=== PATIENT | female | born 1950 | race Caucasian/White ===

== ENCOUNTER 2023-09-08 16:38 | Emergency (ER) | payer OTHER, SELFPAY ==
[2023-09-08 16:42] VITALS: BP 119/66
[2023-09-08 16:45] VITALS: BP 119/66
[2023-09-08 16:56] VITALS: BMI 29.2
[2023-09-08 17:00] VITALS: BP 117/66
[2023-09-08 17:00] LABS: % Eosinophils 4.8 % (0-6); % Immature Granulocytes 0.2 % (0-0.5); % Lymphocytes 9.6 % (20.5-51.1); % Monocytes 17.7 % (1.7-9.3); % Neutrophils 66.7 % (42.2-75.2); Absolute Basophils 0.1 10^3/uL (0-0.2); Absolute Eosinophils 0.2 10^3/uL (0-0.7); Absolute Lymphocytes 0.5 10^3/uL (1.2-3.4); Absolute Monocytes 0.9 10^3/uL (0.1-0.6); Absolute Neutrophils 3.3 10^3/uL (1.4-6.5); Hematocrit 36.3 % (37.0-47.0); Hemoglobin 12.5 g/dL (12.0-16.0); Mean Corp Hgb Conc. 34.4 g/dL (33.0-37.0); Mean Corpuscular Hgb 31.3 pg (27.0-31.0); Mean Corpuscular Volume 90.8 fL (81.0-99.0); Mean Platelet Volume 9.3 fL (7.4-10.4); Nucleated Red Blood Cells % 0 %; Platelet Count 234 10^3/uL (130-400); Red Cell Dist. Width 12.7 % (11.5-14.5)
[2023-09-08 17:14] LABS: ALT (SGPT) 15 U/L (0-35); AST (SGOT) 26 U/L (14-36); Alkaline Phosphatase 77 U/L (38-126); Blood Urea Nitrogen 14 mg/dl (7-17); Calcium 9.3 mg/dl (8.4-10.2); Carbon Dioxide 24 mmol/L (22-30); Chloride 106 mmol/L (98-107); Estimated Creatinine Clearance 63 ml/min; Glucose 134 mg/dl (70-99); Potassium 3.6 mmol/L (3.5-5.1); Sodium 136 mmol/L (135-145); Total Bilirubin 0.4 mg/dl (0.2-1.3); Total Protein 6.6 g/dl (6.3-8.2); eGFR > 60.00
--- NOTE | 2023-09-08 17:27 | ED.GENMED ---
History of Present Illness
General
Chief Complaint: Fainting/Passed Out
Source: patient
Time Seen by Provider: 09/08/23 17:04
Travel History
Have you had any contact with someone who has COVID-19?: No
Do you have any symptoms of coronavirus? Fever > 100 degrees, chills, cough, shortness of breath, sore throat, loss of taste or smell, muscle aches, or headache?: No
History of Present Illness
History of Present Illness:
72-year-old female presents emergency room for evaluation after suffering a syncopal episode. Patient was at a restaurant and ordered a heavy meal. While she was eating the meal she began to feel nauseous. She then began to feel lightheaded as if
she might pass out so she got up to go to the bathroom. While heading to the bathroom she did in fact pass out. Currently the patient feels mildly nauseous but otherwise back to baseline. She denies any chest pain or shortness of breath. She
denies any recent travel.
Past History
Past History
ED Past Medical History: None
Social History
Tobacco: Non-smoker
Living: with family
Phy Exam
Physical Exam
Physical Exam:
General: Awake, Alert, Oriented X3. No acute distress.
Vitals: unremarkable
Head: Atraumatic
Eyes: Pupils equal, EOMI
Throat: Airway intact, no exudates
Neck: Trachea midline
Lungs: Clear and equal b/l
Heart: Regular rate, no murmurs
Abd: Soft, Nontender, No pulsatile mass
Neuro: Cranial nerves intact, muscle strength equal bilaterally
Skin: Warm, dry, no rash
Extremities: pulses equal b/l, no edema
Course
Orders/Labs/Results
Orders:
Orders
09/08/23 16:48
Electrocardiogram (*1) Urgent
Reason for Study: Syncope
EKG- Treatment ONCE
09/08/23 16:54
CMP [Comprehensive Metabolic Panel] Urgent
Complete Blood Count/With Diff Urgent
09/08/23 17:27
0.9% Sodium Chloride 500 ml [Nss] 500 ml IV BOLUS
Ondansetron Injectable [Zofran] 4 mg IV NOW STA
Abnormal Lab Results
09/08/23
16:54
RBC 4.00 L 10^6/uL
(4.20-5.40)
Hct 36.3 L %
(37.0-47.0)
MCH 31.3 H pg
(27.0-31.0)
Absolute Lymphs (auto) 0.5 L 10^3/uL
(1.2-3.4)
Absolute Monos (auto) 0.9 H 10^3/uL
(0.1-0.6)
Lymphocytes % 9.6 L %
(20.5-51.1)
Monocytes % 17.7 H %
(1.7-9.3)
Glucose 134 H mg/dl
(70-99)
09/08/23 16:54
09/08/23 16:54
Vital Signs
Initial and Last Documented VS:
Initial Vital Signs
Temp Pulse Resp BP Pulse Ox
98.1 F 66 21 119/66 97
09/08/23 16:42 09/08/23 16:42 09/08/23 16:42 09/08/23 16:42 09/08/23 16:42
Last Documented Vital Signs
Temp Pulse Resp BP Pulse Ox
98.1 F 75 24 107/56 95
09/08/23 16:42 09/08/23 20:15 09/08/23 20:15 09/08/23 20:00 09/08/23 20:15
MDM/Problems Addressed
Differential Diagnosis Includes:
vasovagal syncope, dysrhythmia, anemia
MDM/Problems Addressed:
Patient's labs are unremarkable. EKG shows sinus rhythm no acute ischemic changes. She feels great after period of observation. Episode likely vasovagal related and nausea. Stable for discharge home and outpatient follow-up
Chronic conditions affecting care: HTN
*Pulse Oximetry
Patient hypoxic: no
*EKG
Interpreted by ED Provider?: Yes
Comparison EKG: no comparison EKG present
Heart Rate: 64
Rate: normal
Rhythm: sinus
[place]: normal axis
Interval: normal interval
QRS Pattern: normal QRS
Ischemia: no ischemia
*[employer] Interpretation
Rate: normal
Interpretation: normal
Rhythm: sinus
*Critical Care Note
Total Time (30-74mins, 75-104mins- exclusive of procedures): Not Applicable
ED Attending Note
-
Portions of this chart may have been created with voice recognition software.� Occasional wrong word or��sound alike� substitutions may have occurred due to the inherent limitations of voice recognition software.
Discharge Plan
Departure
Patient Disposition: Home (Routine Discharge)
Date of Disposition: 09/08/23
Time of Disposition: 19:58
Patient with high blood pressure during this ER visit?: No
Condition: Good
Discharge Problem:
Syncope
Instructions: BLOOD PRESSURE
Prescriptions:
No Action
cholecalciferol (vitamin D3) [Vitamin D3] 2,000 UNIT capsule
2,000 unit PO DAILY
mupirocin 1 APPLIC ointment
1 applic intranasal BID Qty: 1 0RF
betamethasone, augmented 15 GM cream
1 gm topical BID
Patient Comments:
last used in the morning.To be used for a total of 2 weeks from the date prescribed
sennosides [senna] 1 TABLET tablet
2 tab PO BID 0RF
prochlorperazine maleate 5 MG tablet
5 mg PO Q6HPRN PRN (Reason: nausea/vomiting) Qty: 15 0RF
Rx Instructions:
take 1/2 hour before [place] only if recurrent nausea
magnesium hydroxide 30 ML suspension
30 ml PO DAILYPRN PRN (Reason: constipation) 0RF
docusate sodium 100 MG capsule
100 mg PO BID 0RF
aspirin 81 MG tablet,chewable
81 mg PO BID 0RF
lisinopril-hydrochlorothiazide 1 EACH tablet
1 ea PO DAILY Qty: 0 0RF
Rx Instructions:
HOLD SYSTOLIC BLOOD PRESSURE <130
prednisone 10 MG tablet
40 mg PO TAPER Qty: 10 0RF
Rx Instructions:
4 tab(40mg) day 1, 3 tabs(30mg) day 2, 2 tabs(20mg) day3,
1 tab (10mg) day 4, then stop
hydrocodone-acetaminophen 1 TABLET tablet
1 tab PO Q4HPRN PRN (Reason: moderate-severe pain) Qty: 35 0RF
Rx Instructions:
Dx total joint replacement
ongoing therapy
1 tab moderate pain or 2 if pain severe
famotidine 20 MG tablet
20 mg PO HS Qty: 30 0RF
metronidazole 500 MG tablet
500 mg PO TID Qty: 21 0RF
levofloxacin 500 MG tablet
500 mg PO DAILY Qty: 7 0RF
Referrals:
Suleiman Julian DO [Family Provider] -
Activity Restrictions/Additional Instructions:
Please follow up with your primary care provider in the next few days.
Interventions
Interventions:
*Risk Screen - Suicide Last Done: 09/08/23 17:00
*General Assessment Last Done: 09/08/23 17:00
*Neglect/Abuse Screening Last Done: 09/08/23 17:00
ED- Fall Risk Assessment Last Done: 09/08/23 17:00
*ED COVID-19 Vaccine History Last Done: 09/08/23 17:00
*Nursing Disposition Last Done: 09/08/23 20:21
ED- Cardiac Assessment Last Done: 09/08/23 17:00
ED- Neurological Assessment Last Done: 09/08/23 17:00
Discharge Date and Time
Discharge Date/Time: 09/08/23 20:22
Print Language: POLISH
[2023-09-08] MEDS: ZOFRAN 4 MG IV (17:37)
[2023-09-08] MEDS: NSS 500 IV (17:38)
[2023-09-08 18:00] VITALS: BP 114/69
[2023-09-08 19:00] VITALS: BP 135/72
[2023-09-08 20:00] VITALS: BP 107/56
== END 2023-09-08 20:22 | disposition home or self-care (01) ==
LOC: EMR 16:38
PROVIDERS: Emergency Medicine; EMERGENCY PHYSICIAN Emergency Medicine; FAMILY PHYSICIAN Internal Medicine
DX: R55 Syncope and collapse (principal); I10 Essential (primary) hypertension
CPT/HCPCS: 99283; 96374; 96361; 80053; 85025; 93005

== ENCOUNTER → 2023-11-19 08:50 | Outpatient (REF) | payer OTHER, SELFPAY | LOC: RCS 08:50 | PROVIDERS: ATTENDING PHYSICIAN Nurse Practitioner Family | DX: R55 Syncope and collapse (principal); I10 Essential (primary) hypertension; E78.2 Mixed hyperlipidemia; R60.9 Edema, unspecified | CPT/HCPCS: 93017 ==

== ENCOUNTER → 2023-11-20 07:07 | Outpatient (REF) | payer OTHER, SELFPAY | LOC: RCS 07:07 | PROVIDERS: ATTENDING PHYSICIAN Nurse Practitioner Family | DX: R55 Syncope and collapse (principal); I10 Essential (primary) hypertension; E78.2 Mixed hyperlipidemia; R60.9 Edema, unspecified | CPT/HCPCS: 93306 ==

== ENCOUNTER → 2024-02-16 08:54 | Outpatient (REF) | payer OTHER, SELFPAY | LOC: RAD 08:54 | PROVIDERS: ATTENDING PHYSICIAN Orthopaedic Surgery; FAMILY PHYSICIAN Internal Medicine | DX: M12.812 Other specific arthropathies, not elsewhere classified, left shoulder (principal) | CPT/HCPCS: 73200 ==

== ENCOUNTER → 2024-02-25 13:08 | Outpatient (REF) | payer OTHER, SELFPAY | LOC: RCS 13:08 | PROVIDERS: ATTENDING PHYSICIAN Orthopaedic Surgery; FAMILY PHYSICIAN Internal Medicine | DX: M12.812 Other specific arthropathies, not elsewhere classified, left shoulder (principal) | CPT/HCPCS: 93005 ==

== ENCOUNTER 2024-03-05 19:51 | Inpatient (IN) | payer OTHER, SELFPAY ==
[2024-03-05] VITALS (10 sets, daily range): BP systolic 54–112; BP diastolic 64–78; BMI 29.9
--- NOTE | 2024-03-05 17:20 | ED.GENMED ---
History of Present Illness
General
Chief Complaint: Breathing Problem
Source: patient and other (Dr. Sol)
History of Present Illness
History of Present Illness:
73-year-old female presents from surgery center where she had a left shoulder replacement performed. Postoperatively the patient was noted to be hypoxic. Repeat physical exam showed decreased breath sounds on the left. I communicated with the
patient orthopedic surgeon and anesthesiologist. Patient had a left scalene block preoperatively that was done with ultrasound guidance and was uneventful. Patient was intubated without difficulty. Patient's lung exam reported to be normal and
equal bilaterally after intubation. Throughout the operation the patient's ventilatory parameters were normal. It was in the postoperative phase that changing occur. Patient was requiring nasal cannula oxygen. Patient arrives complaining of some
left shoulder pain but also chest pain with deep inspiration.
Past History
Past History
ED Past Medical History: None
Social History
Tobacco: Non-smoker
Living: with family
Phy Exam
Physical Exam
Physical Exam:
General: Awake, Alert, Oriented X3. Increased work of breathing
Vitals: Hypoxic on room air
Head: Atraumatic
Eyes: Pupils equal, EOMI
Throat: Airway intact, no exudates
Neck: Trachea midline
Lungs: Absent breath sounds on the
Heart: Regular rate, no murmurs
Abd: Soft, Nontender, No pulsatile mass
Neuro: Nonfocal
Skin: Warm, dry, no rash
Extremities: Left upper extremity surgical dressing in place. Dressing is clean and dry.
Scores
Heart Failure Risk
Heart Failure Risk Score: Not Applicable
Course
Orders/Labs/Results
Orders:
Orders
03/05/24
CT Chest Tube Urgent
03/05/24 16:50
Portable Chest Xray [CR Chest Portable - 1 View] Urgent
Comment:
Reason For Exam: shortness of breath
Reason Study Needs to be Portable: Patient Unstable
03/05/24 17:16
[facility] CONSULT Urgent
Consulting Provider: Remington Key
Was physician already notified: Yes
Reason for Consult/Procedure: chest tube
Acknowledgement that appropriate orders are entered: N/A
03/05/24 17:50
Ondansetron Injectable [Zofran] 4 mg .ROUTE .STK-MED ONE
03/05/24 17:55
Fentanyl Citrate/Pf [Sublimaze] 100 mcg .ROUTE .STK-MED ONE
03/05/24 18:31
Activity As Directed
Activity Level: Bedrest for limited time
Bedrest duration in hours then activity as indicated above:: 1
Comment: after bedrest then resume previous activity orders
Vital Signs As Directed
Frequency: Other
Additional Instructions:: q15min x4, q30min x2, q1h x2 then routine if stable
03/05/24 18:32
Chest Tube As Directed
Location: left anterior chest
To suction: Yes
Suction to __ centimeters of water: -20
May ambulate with suction off?: Yes
03/05/24 19:13
HYDROmorphone [Dilaudid] 0.5 mg IV NOW STA
03/05/24 19:21
Tizanidine [Zanaflex] 2 mg PO NOW STA
03/05/24 19:22
Admit/Transfer Patient As Directed
Co-Sign Provider:
Level of Care: Inpatient admission
Assign to:: Medical/Surgical
Physician / Group: Hospitalist
Diagnosis: Pneumothorax
Reason for Hospitalization: Pneumothorax
Expected length of stay greater than two midnights?: Yes
ELOS- Estimated Length of Stay in days: 2
I certify the patient meets the requirements for IP care: Yes
PRN Pain Medication Management As Directed
May give lesser potent ordered pain med per pt: Yes
preference::
Protocol:: Medication orders for pain may be administered in a
manner that supports deferring to patient preference
when the pt is:
- Requesting an ordered lesser potent pain medication.
Least to most potent pain medications are defined
as: acetaminophen < NSAID < tramadol < opioids
(morphine, oxycodone, hydromorphone).
- Requesting a lesser dose of the same medication IF
ORDERED.
- Requesting a less intrusive route of administration
if both routes are prescribed by the provider (PO <
IV).
03/05/24 19:26
Code Status As Directed
Resuscitation Status: Full Code
03/06/24 08:00
Cholecalciferol (Vitamin D3) [VITAMIN D3 (cholecalciferol)] 50 mcg PO DAILY
Cyanocobalamin [Vitamin B-12] 1,000 mcg PO DAILY
Ferrous Sulfate [Feosol] 325 mg PO DAILY
03/06/24 18:00
Atorvastatin [Lipitor] 20 mg PO QPM
lisinopril-hydrochlorothiazide 1 tablet PO QPM
Vital Signs
Initial and Last Documented VS:
Initial Vital Signs
Pulse Resp Pulse Ox
85 18 93
03/05/24 16:50 03/05/24 16:50 03/05/24 16:50
Last Documented Vital Signs
Temp Pulse Resp BP Pulse Ox
96.5 F L 90 23 103/74 93
03/05/24 18:40 03/05/24 19:06 03/05/24 19:06 03/05/24 19:06 03/05/24 19:08
MDM/Problems Addressed
Differential Diagnosis Includes:
Spontaneous pneumothorax, phrenic nerve paralysis, mucous plugging
MDM/Problems Addressed:
Chest x-ray obtained only after arrival shows a left sided pneumothorax. Interventional radiologist consulted the place the chest tube as it will require anterior placement. Chest tube was placed by radiology without difficulty evidently. Patient
will be admitted to the hospital service.
*Radiology
Radiology exam reviewed: preliminary read by ED provider (Left-sided pneumothorax)
*Pulse Oximetry
Patient hypoxic: yes
*Critical Care Note
Total Time (30-74mins, 75-104mins- exclusive of procedures): Not Applicable
ED Attending Note
-
Portions of this chart may have been created with voice recognition software.� Occasional wrong word or��sound alike� substitutions may have occurred due to the inherent limitations of voice recognition software.
Discharge Plan
Departure
Patient Disposition: Admit
Date of Disposition: 03/05/24
Time of Disposition: 19:16
Admit to: Med/Surg
Presentation/result/management discussed w/ accepting MD/DO: Hospitalist
Condition: Fair
Discharge Problem:
Pneumothorax on left
Interventions
Interventions:
*Risk Screen - Suicide Last Done: 03/05/24 16:55
*General Assessment Last Done: 03/05/24 16:55
*Neglect/Abuse Screening Last Done: 03/05/24 16:55
ED- Fall Risk Assessment Last Done: 03/05/24 17:05
*ED COVID-19 Vaccine History Last Done: 03/05/24 16:55
ED- Cardiac Assessment Last Done: 03/05/24 17:05
ED- Pulmonary Assessment Last Done: 03/05/24 17:05
--- NOTE | 2024-03-05 18:31 | IR.POSTOP ---
[facility] Post Procedure Note
-
Description of Findings:
Successful left chest tube placement.
--- NOTE | 2024-03-05 19:20 | W.PN.UPDATE ---
Update Note
Progress Note Update
Saw patient at bedside in ED. Reports really no shoulder pain, mostly complaining of back pain. She did undergoing placement of chest tube. Reports breathing has improved somewhat
Dressing with minimal bloody drainage, intact
Some altered sensation distally but not dense block
BCR
POD 0 s/p L rTSA with development of left pneumothorax
Did discuss findings with patient at length. I do not have a great explanation for development of her pneumo. I do not think there is anything we did unusual intraop that would have potentially violated the pleural space. I did explain to her that
it is a somewhat unusual reported complication associated with administration of general anesthesia however. Regardless, she has had her chest tube placed and will continue to monitor respiratory status. From my standpoint, would recommend wearing
sling certainly when out of bed. She understands to limit external rotation while in bed to protect the subscapularis repair. Would limit weight bearing to a coffee cup for the time being.
NWB LUE in sling
Hold off on any PT/OT
Pain control
DVT ppx- typically recommend 81 mg ASA BID post op but will defer to hospitalist recs while in house
Please reach out with any questions or concerns. Will follow while admitted.
--- NOTE | 2024-03-05 19:28 | HPS.HSE ---
Family Physician
-
Family Physician: Suleiman Julian
Chief Complaint
-
Shortness of breath
History of Present Illness
This is a 73-year-old female with past medical history of hypertension, hyperlipidemia, iron deficiency anemia who presents to the emergency department after developing shortness of breath status post outpatient left total shoulder arthroplasty and
found to have pneumothorax.
The patient was in usual state of health and went for a scheduled procedure today. Patient underwent local blockade and then general anesthesia for the procedure. No acute events reported intraoperatively. Discussed with the surgeon who noted no
complications during the procedure. After transfer to the PACU the patient reported shortness of breath. He was immediately transferred to the ED and an x-ray performed showed a large left apical pneumothorax.
Patient denies any prior history of pneumothorax. She denies tobacco use, COPD, asthma, interstitial lung disease. She denies history of recurrent pneumonias. She is not anticoagulated and denies any recent medication changes. Denies any recent
travels.
In the emergency department she was afebrile with a temp of 97, blood pressure was 103/74 and she was satting 93% on room air. She is now status post placement of left-sided chest tube.
Medical History
Past Medical History
Past Medical History: Reports HTN and Hypercholesterolemia
Additional Past Medical History:
ABIODUN
Past Surgical History: Reports Orthopedic (Bilateral total hip arthroplasty)
Social History
Tobacco: Non-smoker
Alcohol: Occasional
Drug: None
Personal:
Living: With Family
Employment: Retired
Family History
Family History: Not pertinent
Allergies / Home Medications
Allergies reflects when Allergies were last updated in [facility].
Home Medications with original date entered in [facility]
Allergy/Medication List:
Allergies
Allergy/AdvReac Type Severity Reaction Status Date / Time
ketamine [Ketamine] Allergy hallucinati Verified 03/05/24 16:52
ons
Home Medications
atorvastatin 20 mg tablet 20 mg PO QPM 03/05/24
cholecalciferol (vitamin D3) 50 mcg (2,000 unit) tablet 50 mcg PO DAILY 03/05/24
cyanocobalamin (vitamin B-12) 1,000 mcg tablet (Vitamin B-12) 1,000 mcg PO DAILY 03/05/24
docusate sodium 100 mg capsule 100 mg PO BIDPRN PRN constipation 03/05/24
ferrous sulfate 325 mg (65 mg iron) tablet 325 mg PO DAILY 03/05/24
ibuprofen 200 mg tablet 200 mg PO TIDPRN PRN mild pain 03/05/24
lisinopril 10 mg-hydrochlorothiazide 12.5 mg tablet 1 tab PO QPM 03/05/24
Review of Systems
-
History Source: Patient
Constitutional: Reports No Symptoms
EENT: Reports No Symptoms
Respiratory: Reports Trouble Breathing and Other (left sided posterior chest pain)
Cardiac: Reports No Symptoms
Abdomen/GI: Reports No Symptoms
: Reports No Symptoms
Musculoskeletal: Reports No Symptoms
Skin: Reports No Symptoms
Neurological: Reports No Symptoms
Endocrine: Reports No Symptoms
Hematologic/Lymphatic: Reports No Symptoms
Psych: Reports No Symptoms
Physical Exam
Vital Signs
Vital Signs
Temp Pulse Resp BP Pulse Ox
96.5 F L 90 23 103/74 93
03/05/24 18:40 03/05/24 19:06 03/05/24 19:06 03/05/24 19:06 03/05/24 19:08
Physical Exam
General: Well Developed, Well Nourished and Pain
HEENT: NormoCephalic, Anicteric, Moist mucous membranes, Atraumatic and PERRLA
Respiratory: Clear
Cardiac: S1/S2 and Regular Rhythm
Breast: Deferred by me
GI: Soft, Non Tender, Non Distended and Normal Bowel Sounds
Rectal: Deferred by Provider
Genito-urinary: Deferred by me
Musculoskeletal: No Clubbing, No Cyanosis and No Edema
Skin: Warm
Neuro: AO x 3
Hematologic/Lymphatic: No Lymphadenopathy
Psych: Calm
Data Reviewed
-
Diagnostic Radiology: Image Personally Visualized and interpreted
CT Scan: Report Reviewed by me
Old Records: Reviewed
Impression/Plan
-
IMPRESSION:
73-year-old with history of hypertension, hyperlipidemia and iron deficiency anemia who presents to the emergency department status post left total shoulder arthroplasty with a left apical pneumothorax. Likely traumatic given location but no
evidence of such intraoperatively. She has no underlying pulmonary or connective tissue disorder and denies any prior h/o spontanous pneumothorax.
PLAN:
1. Pneumothorax - Presumed traumatic and managed accordingly. She is hemodynamically stable on room air and s/p chest tube placement. Discomfort due to shoulder/back pain.
- admit to med/surg
- chest tube to wall suction for now
- chest xray in am
- pain control
- pulmonary consult
2. Ortho - s/p T left shoulder arthroplasty.
- advance diet
- pain control
- sling per ortho
- f/u with ortho
- dvt ppx
3. HTN - well controlled
- obtain routiine labs
- continue hctz/lisinopril with hold for SBP < 100
DVT - PPX lovenox sq for now
Code Status - Full Code
[2024-03-05] MEDS: DILAUDID 0.5 MG IV ×2 (19:44→23:58)
[2024-03-05] MEDS: ZANAFLEX 2 MG PO (19:44)
[2024-03-05] MEDS: FLUSH (NSS) 1 FLUSH IV (21:44)
[2024-03-05] MEDS: ROXICODONE 5 MG PO (21:51)
[2024-03-05 22:10] LABS: Hematocrit 34.8 % (37.0-47.0); Hemoglobin 11.7 g/dL (12.0-16.0); Mean Corp Hgb Conc. 33.6 g/dL (33.0-37.0); Mean Corpuscular Volume 92.3 fL (81.0-99.0); Mean Platelet Volume 9.1 fL (7.4-10.4); Platelet Count 248 10^3/uL (130-400); Red Blood Cell Count 3.77 10^6/uL (4.20-5.40); Red Cell Dist. Width 12.6 % (11.5-14.5); White Blood Cell Count 9.9 10^3/uL (4.8-10.8)
[2024-03-05 22:17] LABS: Blood Urea Nitrogen 17 mg/dl (7-17); Calcium 8.7 mg/dl (8.4-10.2); Carbon Dioxide 24 mmol/L (22-30); Chloride 104 mmol/L (98-107); Estimated Creatinine Clearance 84 ml/min; Glucose 201 mg/dl (70-99); Magnesium 2.1 mg/dl (1.6-2.3); Potassium 4.2 mmol/L (3.5-5.1); Sodium 142 mmol/L (135-145); eGFR > 60.00
[2024-03-06] VITALS (7 sets, daily range): BP systolic 104–131; BP diastolic 64–81
[2024-03-06] MEDS: DILAUDID 0.5 MG IV ×2 (03:58→08:21)
[2024-03-06] MEDS: VITAMIN D3 (cholecalciferol) 50 MCG PO (08:16)
--- NOTE | 2024-03-06 08:55 | W.PN.HOSP.TC ---
Today's Communication/Plan
-
follow labs
Pulm consult
Hga1c
Assessment / Plan
Assessment / Plan
1. Pneumothorax - Presumed traumatic and managed accordingly. She is hemodynamically stable on room air and s/p chest tube placement. Discomfort due to shoulder/back pain.
- admit to med/surg
- chest tube to wall suction for now
- chest xray in am
- pain control
- pulmonary consult, discussed with
stop Feosol due to constipating aspects while nonambulatory
WBC 9.9k/hgb 11.7/plt 248
glu 201 (no hx of DM)
will recheck
2. Ortho - s/p T left shoulder arthroplasty.
- advance diet
- pain control
- sling per ortho
- f/u with ortho
- dvt ppx
3. HTN - well controlled
- continue hctz/lisinopril with hold for SBP < 100
DVT - PPX lovenox sq for now, will plan on transition to ASA 81 mg at time of dc
Code Status - Full Code
Anticipated Discharge: > 48 hours
Subjective/Interval History
-
Date of Service: March 06, 2024
shortness of breath developed post left total shoulder arthroplasty
Objective Data
-
Labs:
Laboratory Results
03/05/24
21:55
WBC 9.9
Hgb 11.7 L
Hct 34.8 L
Plt Count 248
Sodium 142
Potassium 4.2
Chloride 104
Carbon Dioxide 24
BUN 17
Creatinine 0.6
Glucose 201 H
Calcium 8.7
Vital Signs:
Vital Signs
Temp Pulse Resp BP Pulse Ox
96.5 F L 77 14 104/72 97
03/05/24 18:40 10/17/24 01:10 03/06/24 01:10 03/06/24 01:10 03/06/24 06:00
I&O
03/05/24 03/06/24 03/07/24
06:59 06:59 06:59
Intake Total 250 / 250
Output Total 350 / 350
Balance -100 / -100
Review of Systems
-
History Source: Patient
Constitutional: Denies Fever
EENT: Reports No Symptoms Reported
Respiratory: Reports Other (shortness of breath with pain on deep inspiration on left)
Abdomen/GI: Reports No Symptoms
Physical Exam
-
General: Well Developed, Well Nourished and No Apparent Distress
HEENT: Normocephalic, Atraumatic and Moist Mucous Membranes
Respiratory: Clear to Auscultation (on shallow respirations)
Cardiac: Regular Rhythm and S1/S2
GI: Soft, Nontender and Nondistended
Musculoskeletal: No Clubbing, No Cyanosis and No Edema
Neuro: Awake, Alert and Oriented
[2024-03-06] MEDS: VITAMIN B-12 1000 MCG PO (10:07)
[2024-03-06] MEDS: ZOFRAN 4 MG IV ×4 (10:18→23:21)
[2024-03-06] MEDS: ROXICODONE 5 MG PO ×3 (11:50→22:28)
--- NOTE | 2024-03-06 14:47 | CM ---
Patient seen at bedside. Patient sleeping soundly, nursing made aware. Patient s/p surgery, now with chest tube. Patient PCP is Dr. Macario and per chart review patient uses the [facility] pharmacy in [place]. CM will return to complete IA. CM will
continue to follow for discharge planning needs.
Plan; home with VN vs SNF pending PT/OT assessment.
--- NOTE | 2024-03-06 16:05 | CON.PUL ---
Consultation
Consultation Request
Date/Time Consultation Requested: 03/06/2024
Date/Time Consultation Performed: 03/06/2024
Requesting Provider: Dr. Copeland
Performing Provider: Dr. Morris Jimenez
Reason for Consultation: pneumothorax
Medical History
-
History of Present Illness:
73-year-old female with past medical history significant for hypertension, hyperlipidemia, iron deficiency anemia who presented to the emergency department after developing shortness of breath after left total shoulder arthroplasty and found to have
a pneumothorax.
Patient underwent local blockade and then general anesthesia for the procedure. Procedure underwent without any complications. In PACU patient complained of shortness of breath. In the emergency room chest x-ray was performed and demonstrated
left apical pneumothorax.
Denies any cough, wheezing, phlegm production. Denies history of tobacco use or previous pulmonary diseases.
Hemodynamically stable throughout.
Past Medical History
Past Medical History: Other (See assessment and plan)
Social History
Tobacco: Non-smoker
Alcohol: None
Drug: None
Personal:
Living: With Family
Employment: Retired
Family History
Family History: Reviewed & Not Pertinent
Allergies / Home Medications
Allergies
Allergy/AdvReac Type Severity Reaction Status Date / Time
ketamine [Ketamine] Allergy hallucinati Verified 03/05/24 16:52
ons
Home Medications
�Medication �Instructions �Recorded �Confirmed �Last Taken �Type
atorvastatin 20 mg tablet 20 mg PO QPM High Cholesterol 03/05/24 03/05/24 Unknown History
cholecalciferol (vitamin D3) 50 50 mcg PO DAILY Supplement 03/05/24 03/05/24 Unknown History
mcg (2,000 unit) tablet
cyanocobalamin (vitamin B-12) 1,000 mcg PO DAILY Supplement 03/05/24 03/05/24 Unknown History
1,000 mcg tablet (Vitamin B-12)
docusate sodium 100 mg capsule 100 mg PO BIDPRN PRN constipation 03/05/24 03/05/24 Unknown History
ferrous sulfate 325 mg (65 mg 325 mg PO DAILY Supplement 03/05/24 03/05/24 Unknown History
iron) tablet
ibuprofen 200 mg tablet 200 mg PO TIDPRN PRN mild pain 03/05/24 03/05/24 Unknown History
lisinopril 10 1 tab PO QPM Blood Pressure 03/05/24 03/05/24 Unknown History
mg-hydrochlorothiazide 12.5 mg
tablet
Review of Systems
-
History Source: Patient
All other systems: Negative unless noted
Vitals / Labs / Diagnostic Testing
Vital Signs
Temp Pulse Resp BP Pulse Ox
97.9 F 91 16 107/64 95
03/06/24 08:59 03/06/24 08:59 03/06/24 08:59 03/06/24 09:00 03/06/24 09:35
Lab Data
03/05/24 21:55
03/05/24 21:55
Diagnostic Testing:
Physical Exam
-
HEENT: Normocephalic
Cardiovascular: S1/S2
Respiratory: Non-Labored Respirations
GI: Soft and Non Distended
Neurology: Awake
Skin: Warm
General: Comfortable
Assessment
-
73-year-old woman electively admitted to the operating room for shoulder arthroplasty on the left. Underwent local blockade and then general anesthesia. No complications during the procedure. In the PACU developed shortness of breath. Chest
x-ray demonstrated left apical pneumothorax. Chest tube was placed. We were consulted for chest tube management.
Iatrogenic pneumothorax: Suspect possibly due to local blockade.
Status post chest tube placement
Status post shoulder arthroplasty
Conditions present prior admission:
Hypertension
Arthritis
Hypertension
Hypercholesterolemia
Assessment and plan:
Pneumothorax suspect iatrogenic possibly from local blockade.
Patient without underlying lung disease.
Non-smoker
CT chest 03/05/2024: Reviewed, demonstrated compressive atelectasis of the left lung with moderate size pneumothorax.
Right lung is normal.
-
Left pigtail was placed.
No air leak on AeroChamber with respiratory effort or coughing.
Repeat chest x-ray showed full reexpansion of lung. No residual pneumothorax.
Likely lung will reexpand quickly as the patient has no history of underlying lung disease.
Will clamp chest tube. Repeat chest x-ray in the morning. If chest x-ray shows lung reexpansion then we will discontinue chest tube at that time.
-
Discussed with primary team.
--- NOTE | 2024-03-06 16:42 | W.PN.UPDATE ---
Update Note
Progress Note Update
Patient seen at bedside. Denies any shoulder pain. Reports improvement in shortness of breath. Continue to complain of some back pain. I did discuss her care with devops developer. Reportedly may be able to go home tomorrow. Will repeat chest
x-ray in a.m. after clamping chest tube.
Dressing remains intact without significant bloody drainage
Range of motion testing deferred
Continued altered sensation distally, no dense block
For my standpoint continue sling when out of bed.
DVT prophylaxis
Pain control
Medical management per primary team/pulmonology
Plan to follow-up on outpatient basis with myself previously scheduled.
Will continue to follow while in house. Please reach out any questions or concerns
[2024-03-06] MEDS: LOVENOX 40 MG SC (17:10)
[2024-03-06] MEDS: LIPITOR 20 MG PO (17:10)
--- NOTE | 2024-03-06 17:23 | PTCARENOTE ---
Pt seen by java architect. Chest tube clamped. Plan to keep tube clamped overnight - repeat chest xray in AM.
[2024-03-06 20:58] LABS: Hepatitis C Antibody Negative (Negative)
[2024-03-06] MEDS: ORETIC 12.5 MG PO (22:20)
[2024-03-06] MEDS: ZESTRIL 10 MG PO (22:20)
[2024-03-07] MEDS: ROXICODONE 5 MG PO (03:05)
[2024-03-07 06:57] LABS: % Basophils 0.3 % (0-2); % Eosinophils 0.3 % (0-6); % Immature Granulocytes 0.5 % (0-0.5); % Lymphocytes 5.6 % (20.5-51.1); % Monocytes 17.1 % (1.7-9.3); % Neutrophils 76.2 % (42.2-75.2); Absolute Lymphocytes 0.4 10^3/uL (1.2-3.4); Absolute Monocytes 1.3 10^3/uL (0.1-0.6); Hematocrit 31.5 % (37.0-47.0); Hemoglobin 10.7 g/dL (12.0-16.0); Mean Corpuscular Volume 91.3 fL (81.0-99.0); Mean Platelet Volume 9.3 fL (7.4-10.4); Nucleated Red Blood Cells % 0 %; Platelet Count 248 10^3/uL (130-400); Red Blood Cell Count 3.45 10^6/uL (4.20-5.40); Red Cell Dist. Width 13.2 % (11.5-14.5); White Blood Cell Count 7.8 10^3/uL (4.8-10.8)
[2024-03-07 07:22] VITALS: BP 95/60
[2024-03-07 07:23] VITALS: BP 95/60
[2024-03-07 07:26] LABS: ALT (SGPT) 17 U/L (0-35); AST (SGOT) 23 U/L (14-36); Albumin 3.6 g/dl (3.5-5.0); Alkaline Phosphatase 62 U/L (38-126); Blood Urea Nitrogen 16 mg/dl (7-17); Carbon Dioxide 26 mmol/L (22-30); Chloride 102 mmol/L (98-107); Estimated Creatinine Clearance 63 ml/min; Glucose 127 mg/dl (70-99); Sodium 138 mmol/L (135-145); Total Bilirubin 0.4 mg/dl (0.2-1.3); Total Protein 6.2 g/dl (6.3-8.2); eGFR > 60.00
[2024-03-07] MEDS: VITAMIN D3 (cholecalciferol) 50 MCG PO (07:57)
[2024-03-07] MEDS: DILAUDID 0.5 MG IV ×4 (07:57→22:02)
[2024-03-07] MEDS: VITAMIN B-12 1000 MCG PO (07:57)
[2024-03-07 10:06] LABS: Glycohemoglobin (HgbA1c) 5.7 % (4.0-5.6)
--- NOTE | 2024-03-07 11:55 | W.PN.PUL3 ---
Today's Communication / Plan
-
DC chest tube - IR consulted.
Assessment
-
73-year-old woman electively admitted to the operating room for shoulder arthroplasty on the left. Underwent local blockade and then general anesthesia. No complications during the procedure. In the PACU developed shortness of breath. Chest
x-ray demonstrated left apical pneumothorax. Chest tube was placed. We were consulted for chest tube management.
Iatrogenic pneumothorax: Suspect possibly due to local blockade.
Status post chest tube placement
Status post shoulder arthroplasty
Conditions present prior admission:
Hypertension
Arthritis
Hypertension
Hypercholesterolemia
Assessment and plan:
Pneumothorax suspect iatrogenic likely from local blockade.
Patient without underlying lung disease.
Non-smoker
CT chest 03/05/2024: , demonstrated compressive atelectasis of the left lung with moderate size pneumothorax.
Right lung is normal.
-
Left pigtail was placed.
No air leak on AeroChamber with respiratory effort or coughing.
Clamped since last night - no Pneumothorax on CXR - IR consulted to DC chest tube.
No airleak this AM 03/07/2024 after releasing clamp and coughing.
-
Low risk of recurrence - no underlying lung disease.
-
Discussed with primary team, No additional recommendations from the pulmonary perspective, will sign off. Ok to DC from my perspective once chest tube DC.
Please call with questions.
Subjective Data
-
Date of Service:
Date of Service: March 07, 2024
Chief Complaint: Pulmonary Follow Up (Iatrogenic pneumonthorax)
Subjective:
Complaints of shoulder pain.
Review of Systems
Cardiopulmonary: Dyspnea (n) and Dyspnea on Exertion (n)
GI: Abdominal Pain (n) and Nausea (n)
Neuro: Headache (n)
Objective Data
Data Reviewed
Vital Signs / I&O / Oxygen:
Vital Signs
Temp Pulse Resp BP Pulse Ox
98.6 F 82 18 95/60 96
03/07/24 07:23 03/07/24 07:23 03/07/24 07:23 03/07/24 07:23 03/07/24 07:23
Intake and Output
03/06/24 03/07/24 03/08/24
06:59 06:59 06:59
Intake Total 250 / 250
Output Total 350 / 350
Balance -100 / -100
SaO2 96
Nasal Cannula flow liters per 2
minute
Physical Exam
General: Comfortable
HEENT: Normocephalic
Cardiovascular: S1-S2
Respiratory: Non-Labored Respirations and Chest Tube (No airleak )
GI: Soft and Non Distended
Neurology: Awake, Alert and Oriented
Labs/Micro/Reports
Lab Data
03/07/24 06:39
03/07/24 06:39
--- NOTE | 2024-03-07 13:25 | PN.IRAD.UPD ---
Update Note - IRAD
- -
Cleaned left sided chest tube with chloraprep and removed bedside. Site dressed with vaseline gauze and an optifoam dressing.
Justyn Garcia RT(R)()
[2024-03-07 15:21] VITALS: BP 96/58
[2024-03-07 16:46] VITALS: BP 99/71
--- NOTE | 2024-03-07 17:05 | W.PN.HOSP.TC ---
Today's Communication/Plan
-
Chest tube just removed as per
PT/OT consults
discussed with Dr. Turk
Assessment / Plan
Assessment / Plan
1. Pneumothorax - Presumed traumatic and managed accordingly. She is hemodynamically stable on room air and s/p chest tube placement. Discomfort due to shoulder/back pain.
- admit to med/surg
- chest tube just removed by IRAD
- chest xray: Left chest tube in stable position with no evidence for pneumothorax. Small amount of subcutaneous emphysema within the lateral left chest wall.
- pain control
- pulmonary consult, discussed with
stop Feosol due to constipating aspects while nonambulatory
WBC 9.9k/hgb 11.7/plt 248
glu 201 (no hx of DM), a1c 5.7%, repeat glu 127
discussed timing of dc with pt, she requests reeval in AM
2. Ortho - s/p T left shoulder arthroplasty.
- advance diet
- c/o having a lot of pain
- sling per ortho
- f/u with ortho, discussed with Dr. Turk
- dvt ppx
PT/OT consult
3. HTN - BP slightly low at 99/71
- continue lisinopril, will stop HCTZ
DVT - PPX lovenox sq for now, will plan on transition to ASA 81 mg at time of dc
Code Status - Full Code
Anticipated Discharge: 24 - 48 hours
Subjective/Interval History
-
Date of Service: March 07, 2024
Having a lot of shoulder pain
Objective Data
-
Labs:
Laboratory Results
03/07/24
06:39
WBC 7.8
Hgb 10.7 L
Hct 31.5 L
Plt Count 248
Sodium 138
Potassium 4.0
Chloride 102
Carbon Dioxide 26
BUN 16
Creatinine 0.8
Glucose 127 H
Calcium 9.0
Total Bilirubin 0.4
AST 23
ALT 17
Alkaline Phosphatase 62
Vital Signs:
Vital Signs
Temp Pulse Resp BP Pulse Ox
97.5 F 106 17 99/71 97
03/07/24 15:21 03/07/24 16:46 03/07/24 15:21 03/07/24 16:46 03/07/24 15:21
I&O
03/06/24 03/07/24 03/08/24
06:59 06:59 06:59
Intake Total 250 / 250
Output Total 350 / 350
Balance -100 / -100
Review of Systems
-
History Source: Patient and Physician (reviewed with )
Constitutional: Denies Fever
EENT: Reports No Symptoms Reported
Respiratory: Reports No Symptoms; Denies Cough or Trouble Breathing
Cardiac: Reports No Symptoms
Abdomen/GI: Reports No Symptoms
Musculoskeletal: Reports Joint Pain (left shoulder pain)
Neuro: Reports No Symptoms
Physical Exam
-
General: Well Developed, Well Nourished and No Apparent Distress
HEENT: Normocephalic, Atraumatic and Moist Mucous Membranes
Respiratory: Clear to Auscultation; Negative Wheezes, Rales or Rhonchi
Cardiac: Regular Rhythm and S1/S2
GI: Soft, Nontender, Nondistended and Normal Bowel Sounds
Musculoskeletal: No Clubbing, No Cyanosis and No Edema
[2024-03-07] MEDS: LOVENOX 40 MG SC (17:11)
[2024-03-07] MEDS: LIPITOR 20 MG PO (17:11)
--- NOTE | 2024-03-07 17:18 | W.PN.UPDATE ---
Update Note
Progress Note Update
Patient seen at bedside. Friend accompanying her today. Patient reports really no shoulder pain today. She reports that breathing is improved. She reports that back pain she had experienced after placement of chest tube has resolved.
Musculoskeletal left upper extremity
Dressing without significant bloody drainage
Sensation is intact to light touch in all dispositions distally with motor function also intact, black does appear to have worn off for the most part
Brisk cap refill
73-year-old female postop day 2 status post left reverse total shoulder arthroplasty with subsequent development of left pneumothorax now status post chest tube and subsequent removal doing well
Nonweightbearing left upper extremity in sling
Pain control
Medical management per primary team
Continue with follow-up outpatient previously scheduled
Patient should have pain medications from her surgery
Maintain sling at all times except for hygiene
Limited internal rotation as well as external rotation beyond neutral
Okay for active wrist elbow range of motion
Please reach out with any questions or concerns. I will plan to reach out to the patient early next week to touch base with how she is doing.
[2024-03-07] MEDS: ZESTRIL PO (17:53)
[2024-03-08 00:35] VITALS: BP 89/54
[2024-03-08] MEDS: DILAUDID 0.5 MG IV ×2 (02:03→07:57)
[2024-03-08 07:00] VITALS: BP 104/68
[2024-03-08] MEDS: VITAMIN B-12 1000 MCG PO (07:53)
[2024-03-08] MEDS: VITAMIN D3 (cholecalciferol) 50 MCG PO (07:53)
[2024-03-08 10:40] VITALS: BP 116/71; BP 121/76; PULSE 81; PULSE 82; O2SAT 97
--- NOTE | 2024-03-08 11:55 | W.PN.HOSP.TC ---
Today's Communication/Plan
-
PT in AM
Pt has Percocet as prescribed by ortho to take home with her
Assessment / Plan
Assessment / Plan
1. Pneumothorax - Presumed traumatic and managed accordingly. She is hemodynamically stable on room air and s/p chest tube placement. Discomfort due to shoulder/back pain.
- admit to med/surg
- chest tube just removed by IRAD
- chest xray 03/07: Left chest tube in stable position with no evidence for pneumothorax. Small amount of subcutaneous emphysema within the lateral left chest wall.
- pain control
- pulmonary consult, discussed with
stop Feosol due to constipating aspects while nonambulatory
WBC 9.9k/hgb 11.7/plt 248
glu 201 (no hx of DM), a1c 5.7%, repeat glu 127
2. Ortho - s/p T left shoulder arthroplasty.
- advanced diet
- c/o having a lot of pain
- sling per ortho
- f/u with ortho, discussed with Dr. Turk
- dvt ppx
PT/OT consult, input appreciated, recommending 1 more day of PT prior to dc
3. HTN - BP slightly low at 104/68
- continue lisinopril, will stop HCTZ
DVT - PPX lovenox sq for now, will plan on transition to ASA 81 mg at time of dc
Code Status - Full Code
Anticipated Discharge: Within 24 hours
Subjective/Interval History
-
Date of Service: March 08, 2024
Still with pain, no sob
Objective Data
-
Vital Signs:
Vital Signs
Temp Pulse Resp BP Pulse Ox
98.3 F 74 16 104/68 96
03/08/24 07:00 03/08/24 07:00 03/08/24 07:00 03/08/24 07:00 03/08/24 07:00
I&O
03/07/24 03/08/24 03/09/24
06:59 06:59 06:59
Intake Total 900 / 900
Balance 900 / 900
Review of Systems
-
History Source: Patient and Coordinated Provider
Constitutional: Denies Fever
EENT: Reports No Symptoms Reported
Respiratory: Reports No Symptoms; Denies Cough or Trouble Breathing
Cardiac: Reports No Symptoms
Abdomen/GI: Reports No Symptoms
Musculoskeletal: Reports Joint Pain (left shoulder pain)
Neuro: Reports No Symptoms
Physical Exam
-
General: Well Developed, Well Nourished and No Apparent Distress
HEENT: Normocephalic, Atraumatic and Moist Mucous Membranes
Respiratory: Clear to Auscultation; Negative Wheezes, Rales or Rhonchi
Cardiac: Regular Rhythm and S1/S2
GI: Soft, Nontender, Nondistended and Normal Bowel Sounds
Musculoskeletal: No Clubbing, No Cyanosis, No Edema and Other (left shoulder pain)
Neuro: Awake, Alert and Oriented
[2024-03-08] MEDS: ROXICODONE 5 MG PO ×3 (12:08→21:16)
[2024-03-08 15:00] VITALS: BP 120/74
[2024-03-08 15:24] VITALS: BP 120/74; PULSE 82; O2SAT 96
[2024-03-08] MEDS: LOVENOX 40 MG SC (17:04)
[2024-03-08] MEDS: LIPITOR 20 MG PO (17:04)
[2024-03-08] MEDS: ZESTRIL 10 MG PO (17:04)
[2024-03-08 23:25] VITALS: BP 109/66
[2024-03-09] MEDS: ROXICODONE 5 MG PO ×5 (01:31→21:39)
[2024-03-09 06:45] LABS: % Basophils 0.7 % (0-2); % Eosinophils 3.4 % (0-6); % Immature Granulocytes 0.5 % (0-0.5); % Lymphocytes 10.6 % (20.5-51.1); % Monocytes 19.3 % (1.7-9.3); % Neutrophils 65.5 % (42.2-75.2); Absolute Eosinophils 0.2 10^3/uL (0-0.7); Absolute Lymphocytes 0.6 10^3/uL (1.2-3.4); Absolute Monocytes 1.1 10^3/uL (0.1-0.6); Absolute Neutrophils 3.8 10^3/uL (1.4-6.5); Hematocrit 28.1 % (37.0-47.0); Hemoglobin 9.3 g/dL (12.0-16.0); Mean Corp Hgb Conc. 33.1 g/dL (33.0-37.0); Mean Corpuscular Hgb 30.7 pg (27.0-31.0); Mean Corpuscular Volume 92.7 fL (81.0-99.0); Mean Platelet Volume 9.8 fL (7.4-10.4); Nucleated Red Blood Cells % 0 %; Platelet Count 282 10^3/uL (130-400); Red Blood Cell Count 3.03 10^6/uL (4.20-5.40); Red Cell Dist. Width 12.4 % (11.5-14.5); White Blood Cell Count 5.9 10^3/uL (4.8-10.8)
[2024-03-09 06:57] LABS: Blood Urea Nitrogen 12 mg/dl (7-17); Calcium 8.7 mg/dl (8.4-10.2); Carbon Dioxide 27 mmol/L (22-30); Chloride 99 mmol/L (98-107); Estimated Creatinine Clearance 72 ml/min; Glucose 116 mg/dl (70-99); Potassium 3.6 mmol/L (3.5-5.1); Sodium 136 mmol/L (135-145); eGFR > 60.00
[2024-03-09 07:00] VITALS: BP 101/60
[2024-03-09] MEDS: VITAMIN D3 (cholecalciferol) 50 MCG PO (09:42)
[2024-03-09] MEDS: VITAMIN B-12 1000 MCG PO (09:42)
[2024-03-09 11:40] VITALS: BP 100/70; PULSE 75; O2SAT 95
--- NOTE | 2024-03-09 14:22 | W.PN.HOSP.TC ---
Today's Communication/Plan
-
continue Phys Therapy with potential dc tomorrow
Assessment / Plan
Assessment / Plan
1. Pneumothorax - Presumed traumatic and managed accordingly. She is hemodynamically stable on room air and s/p chest tube placement and removal. Discomfort due to shoulder/back pain.
- admit to med/surg
- chest tube just removed by IRAD
- chest xray 03/07: Left chest tube in stable position with no evidence for pneumothorax. Small amount of subcutaneous emphysema within the lateral left chest wall.
- pain control
- pulmonary consult, discussed with
stop Feosol due to constipating aspects while nonambulatory
WBC 9.9k/hgb 11.7/plt 248-->5.9k/hgb9.3/282k
glu 201 (no hx of DM), a1c 5.7%, repeat glu 127-->116
input of PT appreciated
She has improved significantly over the past day, hopefully by tomorrow will be able to be dc to home. Discussed that if remains too weak to go home, may need to consider short term SNF and she voices her understanding
2. Ortho - s/p T left shoulder arthroplasty.
- advanced diet
- c/o having a lot of pain
- sling per ortho
- f/u with ortho, discussed with Dr. Turk
- dvt ppx
PT/OT consult, input appreciated, recommending 1 more day of PT prior to dc
3. HTN - BP slightly low at 104/68
- continue lisinopril, will stop HCTZ
DVT - PPX lovenox sq for now, will plan on transition to ASA 81 mg at time of dc
reviewed with pt and dgt in room
Code Status - Full Code
Anticipated Discharge: Within 24 hours
Subjective/Interval History
-
Date of Service: March 09, 2024
starting to feel better, but does not feel she is well enough to be dc to home, just yet
Objective Data
-
Labs:
Laboratory Results
03/09/24
04:35
WBC 5.9
Hgb 9.3 L
Hct 28.1 L
Plt Count 282
Sodium 136
Potassium 3.6
Chloride 99
Carbon Dioxide 27
BUN 12
Creatinine 0.7
Glucose 116 H
Calcium 8.7
Vital Signs:
Vital Signs
Temp Pulse Resp BP Pulse Ox
98.4 F 75 18 101/60 96
03/09/24 07:00 03/09/24 07:00 03/09/24 07:00 03/09/24 07:00 03/09/24 07:00
I&O
03/08/24 03/09/24 03/10/24
06:59 06:59 06:59
Intake Total 900 / 900 1020 / 1020
Balance 900 / 900 1020 / 1020
Review of Systems
-
History Source: Patient and Coordinated Provider
Constitutional: Denies Fever
EENT: Reports No Symptoms Reported
Respiratory: Reports No Symptoms; Denies Cough or Trouble Breathing
Cardiac: Reports No Symptoms
Abdomen/GI: Reports No Symptoms
Musculoskeletal: Reports Joint Pain (left shoulder pain)
Neuro: Reports No Symptoms
Physical Exam
-
General: Well Developed, Well Nourished and No Apparent Distress
HEENT: Normocephalic, Atraumatic and Moist Mucous Membranes
Respiratory: Clear to Auscultation (able to take deeper breaths today); Negative Wheezes, Rales or Rhonchi
Cardiac: Regular Rhythm and S1/S2
GI: Soft, Nontender, Nondistended and Normal Bowel Sounds
Musculoskeletal: No Clubbing, No Cyanosis, No Edema and Other (left shoulder pain)
Neuro: Awake, Alert and Oriented
[2024-03-09 15:00] VITALS: BP 105/64
[2024-03-09] MEDS: LOVENOX 40 MG SC (17:09)
[2024-03-09] MEDS: LIPITOR 20 MG PO (17:10)
[2024-03-09] MEDS: ZESTRIL PO (17:11)
[2024-03-09 23:10] VITALS: BP 114/74
[2024-03-10] MEDS: ROXICODONE 5 MG PO ×3 (02:51→15:32)
[2024-03-10 07:35] VITALS: BP 120/67
[2024-03-10] MEDS: VITAMIN D3 (cholecalciferol) 50 MCG PO (07:57)
[2024-03-10] MEDS: VITAMIN B-12 1000 MCG PO (07:57)
--- NOTE | 2024-03-10 12:25 | CM ---
Reviewed chart, patient progressing well in PT, not quite at baseline but would like to return home when stable.
Plan: Case management will continue to follow and assist with discharge planning. Tentative home when cleared for discharge.
[2024-03-10 12:35] VITALS: BP 113/75; PULSE 70; O2SAT 98
[2024-03-10 15:03] VITALS: BP 120/76
--- NOTE | 2024-03-10 17:08 | W.PN.HOSP.TC ---
Addendum entered and electronically signed by Sharda Gonzales MD 03/10/24 20:15:
I saw and evaluated the patient independently. I reviewed the resident�s note and agree with findings and plan as documented by Dr. Castillo.
GENERAL: well developed, well nourished, female in no apparent distress
HEENT: NC/AT--no O2 requirements
HEART: regular rate and rhythm, +S1, +S2
LUNGS : clear to auscultation bilaterally
ABDOM: soft, nontender, nondistended, + bowel sounds
EXT: no cyanosis, clubbing, or edema--left shoulder in sling
NEUROLOGIC: grossly intact
Pneumothorax --appears to be acute and traumatic --thinking due to shoulder replacement surgery--chest tube removed--no residual seen--OK for d/c
S/p Total Left Shoulder Arthroplasty- Patient still has residual shoulder discomfort status post surgery-- Patient being followed by ortho, who state they will follow up on an outpatient basis-- Continue L shoulder sling- DVT PPx per ortho of asa
81mg
Essential HTN--cont meds as able
OK for d/c
Original Note:
Today's Communication/Plan
-
Pt condition greatly improved; patient to be discharged to home today.
Assessment / Plan
Assessment / Plan
1. Pneumothorax
- Patient feels symptoms have significantly improved over past couple of days; feels she is ready to be d/c.
- Pt's respiratory and cardiovascular exam are largely normal and significantly improved from time of admission.
- Patient to be discharged to home today.
2. S/p Total Left Shoulder Arthroplasty
- Patient still has residual shoulder discomfort status post surgery.
- Patient being followed by ortho, who state they will follow up on an outpatient basis.
- Continue L shoulder sling
- DVT PPx per ortho; Lovenox discontinued and patient to be started on ASA 81mg at home.
3. HTN
- Systolic BP 120 today. Patient can continue her home meds at discharge.
Anticipated Discharge: Today
Subjective/Interval History
-
Date of Service: March 10, 2024
Pt states that she is feeling better today; she feels that her breathing is better today than on past days. Denies overt SOB, CP, dizziness, or trouble with urination or defecation, although still has some left shoulder discomfort.
Objective Data
-
Vital Signs:
Vital Signs
Temp Pulse Resp BP Pulse Ox
98.2 F 70 20 120/76 98
03/10/24 15:03 03/10/24 15:03 03/10/24 15:03 03/10/24 15:03 03/10/24 15:03
I&O
03/09/24 03/10/24 03/11/24
06:59 06:59 06:59
Intake Total 1020 / 1020 720 / 720
Balance 1020 / 1020 720 / 720
Review of Systems
-
History Source: Patient
Respiratory: Reports No Symptoms
Cardiac: Reports No Symptoms
Musculoskeletal: Reports Other (shoulder discomfort)
Physical Exam
-
General: No Apparent Distress and Comfortable
HEENT: Normocephalic and Atraumatic
Respiratory: Clear to Auscultation (no wheezes, rales, or rhonchi)
Cardiac: Regular Rhythm
Musculoskeletal: Other (left shoulder discomfort)
Skin: Warm and Dry
Neuro: Awake and Alert
Psych: Calm
[2024-03-10] MEDS: ZESTRIL 10 MG PO (17:32)
[2024-03-10] MEDS: LIPITOR 20 MG PO (17:32)
[2024-03-10] MEDS: LOVENOX 40 MG SC (17:33)
--- NOTE | 2024-03-10 18:54 | W.DCSUMMARY ---
Addendum entered and electronically signed by Sharda Gonzales MD 03/10/24 20:18:
Read, reviewed, and agree. See same day progress note for additional details. Time spent coordinating care, DC planning, review of DC plan of care with resident, transition of care, review of records in EMR, med rec, consults, notes, d/w
consultants, nursing, family, and CM is less than 30 minutes.
Original Note:
Discharge Summary
Discharge Data
Date of Admission: 03/05/24
Date of Discharge: 03/10/24
-
Pending Results: No
Hospital Course
Discharging Physician : Good Castillo DO; Sharda Gonzales MD
Primary care physician : Suleiman Julian DO
Principal Discharge diagnosis : Left Pneumothorax s/p left total shoulder arthroplasty
Chronic Discharge diagnosis : Hypertension
Hospital Course : This is a 73 year old female with a past medical history of hypertension, hyperlipidemia, and iron deficiency anemia who presented to the emergency department from the surgery center after developing shortness of breath after an
outpatient left total shoulder arthroplasty. She was found to have a pneumothorax, which was likely iatrogenic due to local blockade during the surgery. The patient was admitted to the medical/surgical unit and decompressed with a chest tube to wall
suction. The patient was followed by ortho who managed the operated shoulder with a sling in the interim. The chest tube was then discontinued on Day 3 of her admission. Patient remained in the hospital for 2 more days for physical therapy and
discharged on the 5th day of admission with plans for visiting nurse, physical therapy, and occupational therapy. The patient was advised to be nonweightbearing on the left upper extremity which will remain in a sling. She should maintain the sling
at all times, except for hygiene. She is advised to limit internal rotation and external rotation of the shoulder status post surgery, but it is okay to go through range of motion in the wrist and elbow. She should follow up with the orthopedic
surgeon on an outpatient basis as scheduled. She is also advised to take aspirin 81 mg daily for deep venous thrombosis prophylaxis.
Important imaging findings : Chest X-Ray on 03/05 showed an approximate 50% left apical pneumothorax. Chest X-Ray on 03/06 showed the pigtail chest tube in place with complete resolution of the left sided pneumothorax. Chest X-Ray on 03/07 showed
the left chest tube in stable position, with continued resolution of the left sided pneumothorax.
Procedure findings : N/A.
Discharge Plan
-
Patient Disposition: Home (Routine Discharge)
Discharge Diagnosis/Procedures: Left Pneumothorax status post Left Total Shoulder Arthroplasty
Hypertension
Condition: Fair
Diet: Regular
Activity: As tolerated
Additional Activity: Nonweightbearing left upper extremity in sling
Maintain sling at all times except for hygiene
Okay for active wrist elbow range of motion
Follow up with Ortho outpatient as scheduled
Other Services: PT
Referrals:
Suleiman Julian DO [Family Provider] - in less than 1 week
Additional Discharge Medication Instructions: Orthopedics has prescribed Percocet for the patient
Prescriptions:
New
aspirin 81 mg capsule
81 mg PO DAILY Qty: 30 0RF
Continued
atorvastatin 20 mg tablet
20 mg PO QPM
cyanocobalamin (vitamin B-12) [Vitamin B-12] 1,000 mcg Tablet
1,000 mcg PO DAILY
ferrous sulfate 325 mg (65 mg iron) Tablet
325 mg PO DAILY
ibuprofen 200 mg Tablet
200 mg PO TIDPRN PRN (Reason: mild pain)
lisinopril-hydrochlorothiazide 10-12.5 mg tablet
1 tab PO QPM
cholecalciferol (vitamin D3) 50 mcg (2,000 unit) Tablet
50 mcg PO DAILY
docusate sodium 100 MG capsule
100 mg PO BIDPRN PRN (Reason: constipation)
Discharge Orders:
Discharge Patient (As Directed); Ordered 03/10/24
Ordered By: Good Castillo
Discharge Date and Time
Discharge Date/Time: 03/10/24 18:15
Print Language: MACEDONIAN
--- NOTE | 2024-03-11 10:28 | VNURNOTE ---
Home Health Liaison spoke with patient to discuss [facility] nurse/therapy, visits, schedule and homebound status. Patient is agreeable and understands that visits at home will be 2-3 x per week to assess and teach medical management Patient is aware
that [facility] will contact them for start of care in 1-2 days after discharge from .
[facility] referral completed in [facility].
== END 2024-03-10 18:15 | disposition home or self-care (01) | DRG 201 ==
LOC: 3 WEST ACU 19:51
PROVIDERS: Internal Medicine; Radiology Diagnostic Radiology; ADMITTING PHYSICIAN Internal Medicine; ATTENDING PHYSICIAN Internal Medicine; CONSULT PHYSICIAN Internal Medicine Critical Care Medicine; EMERGENCY PHYSICIAN Emergency Medicine; FAMILY PHYSICIAN Internal Medicine
PROC: 0W9B30Z Drainage of Left Pleural Cavity with Drainage Device, Percutaneous Approach (ICD-10-PCS; 2024-03-05)
DX: J95.811 Postprocedural pneumothorax (principal); E78.00 Pure hypercholesterolemia, unspecified; Z96.612 Presence of left artificial shoulder joint; D50.9 Iron deficiency anemia, unspecified; I10 Essential (primary) hypertension; M19.90 Unspecified osteoarthritis, unspecified site
CPT/HCPCS: 32557; 71045; 80048; 80053; 83036; 83735; 85025; 85027; 86803; 96374; 97116; 97162; 97167; 97530; 97535; 99285

== ENCOUNTER 2025-02-04 14:57 | Emergency (ER) | payer OTHER, MEDICARE, SELFPAY ==
[2025-02-04 15:02] VITALS: BP 118/80; BMI 30.1
[2025-02-04 15:26] LABS: Hematocrit 36.4 % (37.0-47.0); Hemoglobin 12.3 g/dL (12.0-16.0); Mean Corp Hgb Conc. 33.8 g/dL (33.0-37.0); Mean Corpuscular Volume 91.9 fL (81.0-99.0); Nucleated Red Blood Cells % 0 %; Platelet Count 255 10^3/uL (130-400); Red Cell Dist. Width 12.7 % (11.5-14.5)
[2025-02-04 15:45] LABS: ALT (SGPT) 15 U/L (0-35); AST (SGOT) 23 U/L (14-36); Albumin 4.1 g/dl (3.5-5.0); Alkaline Phosphatase 83 U/L (38-126); Blood Urea Nitrogen 17 mg/dl (7-17); Calcium 9.7 mg/dl (8.4-10.2); Carbon Dioxide 25 mmol/L (22-30); Chloride 106 mmol/L (98-107); Estimated Creatinine Clearance 71 ml/min; Glucose 124 mg/dl (70-99); Potassium 4.0 mmol/L (3.5-5.1); Sodium 137 mmol/L (135-145); Total Protein 6.8 g/dl (6.3-8.2); eGFR > 60.00
[2025-02-04 16:00] LABS: Troponin I < 0.012 ng/ml
--- NOTE | 2025-02-04 16:34 | ED.GENMED ---
History of Present Illness
General
Chief Complaint: Chest Pain
Source: patient
Time Seen by Provider: 02/04/25 16:15
History of Present Illness
History of Present Illness:
74-year-old female with past medical history of hypertension hyperlipidemia presenting to the ER for evaluation noting yesterday after eating dinner she developed a sternal chest disc which lasted for a few hours described to be more of a dull ache
and then resolved spontaneously. Patient awoke this morning without the pain however awoke feeling vertiginous stating that whenever she would turn her head she would experience dizziness and that when she would keep her head still the dizziness
would resolve. After eating lunch and showering she then developed the sternal pain again which is what ultimately prompted her to come back to the ER. EMS gave the patient 4 aspirin and 2 sublingual nitroglycerin, at time of my exam patient
states that she is pain/discomfort free but is still feeling the vertigo. Patient states that she was also concerned because in 2021 she had surgery for a 'twisted stomach' but when asked to further expand on this diagnosis she states she was
unsure as to what the ultimate diagnosis was. She notes that while she is currently nauseous there has not been any vomiting. She also notes that she had a bowel movement earlier today.
Past History
Past History
ED Past Medical History: HTN and Hypercholesterolemia
ED Past Surgical History: Orthopedic
Social History
Tobacco: Non-smoker
Alcohol: None
Drug: None
Personal:
Living: with family
Review of Systems
Review of Systems
All Other Systems: ROS reviewed and negative except as documented in HPI and ROS
Phy Exam
Physical Exam
Physical Exam:
GENERAL: Alert , in no apparent distress
EYE: clear conjunctiva b/l
HEAD: NCAT
ENT: o/p clr, mmm.
CARDIAC: Regular rate and rhythm .
LUNGS: Clear breath sounds bilaterally, no acute respiratory distress, no wheezes/rales/rhonchi
ABDOMEN: Soft, without focal tenderness, no r/g, no cvat
NEUROLOGICAL: Alert and oriented
SKIN: Warm and dry, skin intact.
MUSCULOSKELETAL: No edema, well perfused.
PSYCH: Normal and appropriate interaction.
Scores
Heart Failure Risk
Heart Failure Risk Score: Not Applicable
Heart Score for Chest Pain Patients
STEMI patient?: No
History: Slightly or Non-Suspicious
ECG: Normal
Age: >/= 65 years
Risk Factors: 1 or 2 Risk Factors
Troponin: </= Normal Limit
Heart Score for Chest Pain Patients: 3
Heart Score Risk: 2.5% MACE over next 6 weeks
Withdrawal Assessment of Alcohol
Withdrawal Assessment Completed?: Not applicable
Course
Orders/Labs/Results
Orders:
Orders
02/04/25 15:00
Electrocardiogram (*1) Urgent
Reason for Study: Chest Pain
EKG- Treatment ONCE
02/04/25 15:10
Complete Blood Count/With Diff Urgent
Comprehensive Metabolic Panel Urgent
Troponin I Urgent
02/04/25 15:18
CR Chest - 2 Views Urgent
Comment:
Reason For Exam: short of breath
02/04/25 16:27
Meclizine [Antivert] 25 mg PO NOW STA
Ondansetron Injectable [Zofran] 4 mg IV NOW STA
02/04/25 18:05
Troponin I Urgent
Abnormal Lab Results
02/04/25
15:10
RBC 3.96 L 10^6/uL
(4.20-5.40)
Hct 36.4 L %
(37.0-47.0)
MCH 31.1 H pg
(27.0-31.0)
Absolute Lymphs (auto) 0.7 L 10^3/uL
(1.2-3.4)
Absolute Monos (auto) 0.8 H 10^3/uL
(0.1-0.6)
Lymphocytes % 12.5 L %
(20.5-51.1)
Monocytes % 12.7 H %
(1.7-9.3)
Glucose 124 H mg/dl
(70-99)
02/04/25 15:10
02/04/25 15:10
Vital Signs
Initial and Last Documented VS:
Initial Vital Signs
Temp Pulse Resp BP Pulse Ox
98 F 63 19 118/80 95
02/04/25 15:02 02/04/25 15:02 02/04/25 15:02 02/04/25 15:02 02/04/25 15:02
Last Documented Vital Signs
Temp Pulse Resp BP Pulse Ox
98 F 62 12 135/76 97
02/04/25 15:02 02/04/25 19:00 02/04/25 19:00 02/04/25 19:00 02/04/25 19:00
MDM/Problems Addressed
Differential Diagnosis Includes:
GERD
Gastritis
PUD
Biliary Colic
ACS/angina
PTX
Pericarditis/myocarditis
BPPV
Labyrinthitis
Meniere's disease
MDM/Problems Addressed:
74-year-old female with past medical history of hypertension hyperlipidemia presenting to the ER for 2 separate symptoms including chest discomfort after eating and vertiginous symptoms, the chest discomfort started yesterday, vertigo today.
Patient noting the chest discomfort is currently fully resolved but still feeling the vertiginous symptoms. Currently hemodynamically stable and in no acute distress. Workup initiated on arrival is reassuring with a negative troponin, nonischemic
EKG, negative chest x-ray. Will treat symptoms with Zofran and Antivert. Will repeat a troponin. Disposition pending.
*Radiology
Radiology exam reviewed: preliminary read by ED provider (Unremarkable chest x-ray)
*Pulse Oximetry
SaO2: 97
Oxygen Mode of Delivery: Room air
Patient hypoxic: no
*EKG
Heart Rate: 59
Rate: bradycardiac
Rhythm: sinus
[place]: left axis deviation
Interval: first degree heart block
Ischemia: no ischemia
*[employer] Interpretation
Rate: normal
Heart Rate: 68
Rhythm: sinus
*Critical Care Note
Total Time (30-74mins, 75-104mins- exclusive of procedures): Not Applicable
Data Reviewed
Review of Other/Old Records Reveals: Records and Discharge Summary
Source: patient and records
Comment
Comment:
Patient had stress test and echocardiogram in 2023, there was mild mitral regurgitation and tricuspid regurgitation seen on the echocardiogram but normal stress test performed
Patient Management
Escalation/DeEscalation of care consider admission/obs:
Patient's repeat troponin remains undetectable. She reports feeling significantly better and would like to be discharged home. Patient aware of return precautions to the emergency department.
ED Attending Note
-
Portions of this chart may have been created with voice recognition software.� Occasional wrong word or��sound alike� substitutions may have occurred due to the inherent limitations of voice recognition software.
Discharge Plan
Departure
Patient Disposition: Home (Routine Discharge)
Date of Disposition: 02/04/25
Time of Disposition: 18:55
Patient with high blood pressure during this ER visit?: No
Discharge Problem:
Chest pain, Dizziness
Instructions: Chest Pain That Is Not Caused by the Heart (DC)
Prescriptions:
No Action
atorvastatin 20 mg tablet
20 mg PO QPM
cyanocobalamin (vitamin B-12) [Vitamin B-12] 1,000 mcg Tablet
1,000 mcg PO DAILY
ferrous sulfate 325 mg (65 mg iron) Tablet
325 mg PO DAILY
ibuprofen 200 mg Tablet
200 mg PO TIDPRN PRN (Reason: mild pain)
lisinopril-hydrochlorothiazide 10-12.5 mg tablet
1 tab PO QPM
cholecalciferol (vitamin D3) 50 mcg (2,000 unit) Tablet
50 mcg PO DAILY
docusate sodium 100 MG capsule
100 mg PO BIDPRN PRN (Reason: constipation)
aspirin 81 mg capsule
81 mg PO DAILY Qty: 30 0RF
Referrals:
Suleiman Julian DO [Family Provider, Internal Medicine]
Interventions
Interventions:
*Risk Screen - Suicide Last Done: 02/04/25 15:02
*General Assessment Last Done: 02/04/25 15:02
*Neglect/Abuse Screening Last Done: 02/04/25 15:02
*ED- Fall Risk Assessment Last Done: 02/04/25 15:02
*ED COVID-19 Vaccine History Last Done: 02/04/25 15:02
*Nursing Disposition Last Done: 02/04/25 19:19
ED- Cardiac Assessment Last Done: 02/04/25 15:02
Discharge Date and Time
Discharge Date/Time: 02/04/25 19:20
Print Language: ROMANSH
[2025-02-04] MEDS: ZOFRAN 4 MG IV (16:36)
[2025-02-04] MEDS: ANTIVERT 25 MG PO (16:36)
[2025-02-04 17:00] VITALS: BP 130/77
[2025-02-04 18:00] VITALS: BP 129/73
[2025-02-04 18:47] LABS: Troponin I < 0.012 ng/ml
[2025-02-04 19:00] VITALS: BP 135/76
== END 2025-02-04 19:20 | disposition home or self-care (01) ==
LOC: EMR 14:57
PROVIDERS: Emergency Medicine; Physician Assistant Medical; EMERGENCY PHYSICIAN Emergency Medicine; FAMILY PHYSICIAN Internal Medicine
DX: R07.9 Chest pain, unspecified (principal); R42 Dizziness and giddiness; I10 Essential (primary) hypertension; E78.00 Pure hypercholesterolemia, unspecified; I44.0 Atrioventricular block, first degree; I08.1 Rheumatic disorders of both mitral and tricuspid valves
CPT/HCPCS: 99284; 96374; 71046; 80053; 84484; 85025; 93005

== ENCOUNTER → 2025-03-02 14:07 | Outpatient (REF) | payer OTHER, SELFPAY | LOC: HWRAD 14:07 | PROVIDERS: ATTENDING PHYSICIAN Nurse Practitioner Family; FAMILY PHYSICIAN Internal Medicine | DX: R42 Dizziness and giddiness (principal) | CPT/HCPCS: 70450 ==

== ENCOUNTER → 2025-03-24 13:00 | Outpatient (REF) | payer OTHER, SELFPAY | LOC: RCS 13:00 | PROVIDERS: ATTENDING PHYSICIAN Nurse Practitioner Family | DX: Z86.73 Personal history of transient ischemic attack (TIA), and cerebral infarction without residual deficits (principal); R42 Dizziness and giddiness | CPT/HCPCS: 93225; 93226 ==

== ENCOUNTER → 2025-04-09 15:15 | Outpatient (REF) | payer OTHER, SELFPAY | LOC: RAD 15:15 | PROVIDERS: ATTENDING PHYSICIAN Nurse Practitioner Family | DX: Z86.73 Personal history of transient ischemic attack (TIA), and cerebral infarction without residual deficits (principal) | CPT/HCPCS: 93880 ==